=== PATIENT | male | born 1985 | race African-American/Black ===

== ENCOUNTER 2017-04-22 23:47 | Emergency (ER) | payer SELFPAY ==
[2017-04-23] MEDS ORDERED: Morphine 4 MG/ML VIAL ONE (00:04)
[2017-04-23] MEDS ORDERED: Lorazepam 2 MG/ML VIAL ONE (00:04)
[2017-04-23] MEDS ORDERED: Ondansetron ODT 4 MG TAB ONE (00:04)
== END 2017-04-23 00:38 | disposition home or self-care (01) ==
LOC: ERS 23:47
DX: S39.012A Strain of muscle, fascia and tendon of lower back, initial encounter (principal); I10 Essential (primary) hypertension; F17.210 Nicotine dependence, cigarettes, uncomplicated; Z79.899 Other long term (current) drug therapy; W01.10XA Fall on same level from slipping, tripping and stumbling with subsequent striking against unspecified object, initial encounter
CPT/HCPCS: 96372; J2060; J2270; Q0162